=== PATIENT | female | born 1950 | race Caucasian/White ===

== ENCOUNTER 2017-05-25 10:53 | Outpatient (CLI) | payer BC, MEDICARE | END 2017-05-25 11:00 | LOC: SLEEP 10:53 | PROVIDERS: ATTEND Otolaryngology Otolaryngology/Facial Plastic Surgery | DX: G47.10 Hypersomnia, unspecified (principal); R06.83 Snoring ==

== ENCOUNTER → 2017-09-30 | Outpatient (CLI) | payer BC, MEDICARE ==
--- NOTE | 2017-09-30 10:13 | Diagnostic Imaging Report ---
PROCEDURE: MRI lumbar spine. TECHNIQUE: Multiplanar, multisequence MRI of the lumbar spine was performed without contrast. INDICATION: Lower back pain. Left leg pain. Recent lumbar surgery. COMPARISON: 06/19/2014. FINDINGS: For the purposes of this exam, last well-formed disc space is denoted the L5-S1 level. Static alignment of the lumbar spine is maintained. There is no significant ramón- or retrolisthesis. There is no evidence of jumped facets. Vertebral body heights are maintained. There is no evidence of acute fracture. Modic type II degenerative changes are noted involving the adjacent endplates at the L5-S1 level. There is also some edematous type signal involving the anterior inferior corner of the T12 vertebral body and anterior superior corners of the L1 and L2 vertebral bodies. Otherwise, marrow signal is unremarkable. There is also multilevel intervertebral disc height loss. There has been significant progression of degenerative disc disease at the L5-S1 level when compared to 2013. Visualized portions of distal cord are unremarkable. Conus terminates at approximately the L1 level. No abnormal intrathecal filling defects are seen. Pre-and paravertebral soft tissue structures are unremarkable. Note is made of heterogeneous signal within the subcutaneous soft tissues, midline at the L3 through L5 level. Multiple foci of signal void are also noted. Findings are consistent with recent surgical intervention. No distinct focal fluid collections are seen to suggest abscess formation. Axial images demonstrate the following: T12-L1: There is left paracentric small focal disc protrusion. This results in minimal asymmetric narrowing of the spinal canal. There is also mild bilateral ligamentum flavum laxity and facet arthropathy. There is however no significant neuroforaminal stenosis. L1-L2: There is broad-based posterior disc bulge, slightly eccentric to the left. As result, there is minimal narrowing of the spinal canal. Neural foramen are unremarkable. L2-L3: There is broad-based posterior disc bulge which results in minimal flattening of the anterior thecal sac. There is also minimal narrowing of the bilateral neural foramen. L3-L4: There is slight broad-based posterior disc bulge. There is also bilateral ligamentum flavum laxity and facet arthropathy. Note is also made of a 4-5 mm T2 bright rounded focus anterior to the right facet. This likely represents synovial cyst and may result in mass effect on the exiting right L4 nerve root. There is also mild narrowing of the bilateral neural foramen. L4-L5: There is no large disc bulge or focal protrusion. Postsurgical changes are noted. There is minimal narrowing of the spinal canal and bilateral neural foramen. L5-S1: There is broad-based posterior disc bulge and bilateral facet arthropathy. This results in mild narrowing of the bilateral neural foramen and minimal narrowing of spinal canal. IMPRESSION: 1. Postsurgical changes of the lumbar spine. Again, there is heterogeneous signal within the posterior soft tissues. There is no evidence of postsurgical loculated fluid collection. 2. Multilevel degenerative changes of the lumbar spine. Intervertebral degenerative changes are greatest at the L5-S1 level. Note is also made of synovial cyst on the right at the L3-L4 level potentially resulting in mass effect on the exiting right L4 nerve root. 3. No acute fracture or dislocation. Dictated by: Dictated on workstation # [id number]
== END ==
LOC: RAD 09:12
PROVIDERS: ATTEND Physician Assistant
DX: M47.817 Spondylosis without myelopathy or radiculopathy, lumbosacral region (principal); M71.38 Other bursal cyst, other site; M79.605 Pain in left leg; Z98.890 Other specified postprocedural states
CPT/HCPCS: 72148

== ENCOUNTER → 2020-10-04 | Outpatient (CLI) | payer OTHER, MEDICARE | LOC: GIR 12:32 | PROVIDERS: ATTEND Nurse Practitioner Family | DX: Z01.89 Encounter for other specified special examinations (principal) | CPT/HCPCS: 84145 ==

== ENCOUNTER → 2020-10-07 | Outpatient (CLI) | payer OTHER | LOC: GIR 13:03 → MERGE 13:03 | PROVIDERS: ATTEND Internal Medicine | DX: Z01.89 Encounter for other specified special examinations (principal) | CPT/HCPCS: 84145 ==

== ENCOUNTER 2020-10-13 10:17 | Inpatient (IN) | payer BC, MEDICARE ==
[2020-10-13] VITALS (17 sets, daily range): BP systolic 81–118; BP diastolic 32–99
[~2020-10-13] VITALS: Ht 170 cm; Wt 96.0 kg
[2020-10-13] MEDS ORDERED: DOCUSATE SODIUM 100 MG (COLACE) CAP PO PRN (11:00)
[2020-10-13] MEDS ORDERED: ACETAMINOPHEN 500 MG TAB (TYLENOL) PO PRN (11:00)
[2020-10-13] MEDS ORDERED: diphenhydrAMINE 25 MG TAB (BENADRYL) PO PRN (11:00)
[2020-10-13] MEDS ORDERED: HYDROcodone/APAP 5 MG/325 MG (LORTAB) TAB PO PRN (11:00)
[2020-10-13] MEDS ORDERED: MELATONIN 3 MG TABLET PO PRN (11:00)
[2020-10-13] MEDS ORDERED: ONDANSETRON 4 MG/2 ML (SDV) Z0FRAN IVP PRN (11:00)
[2020-10-13] MEDS ORDERED: CALCIUM CARBONATE 500 MG (TUMS) TAB.CHEW PO PRN (11:00)
[2020-10-13] MEDS ORDERED: ALPRAZolam 0.25 MG (XANAX) TAB PO PRN (11:00)
[2020-10-13] MEDS ORDERED: LOPERAMIDE 2 MG (IMODIUM) TABLET PO PRN (11:00)
[2020-10-13] MEDS ORDERED: CATHETER FLUSH 10 ML SYR IV PRN (12:45)
--- NOTE | 2020-10-13 13:51 | Diagnostic Imaging Report ---
INDICATION: Dyspnea. TECHNIQUE: Single view chest 12:58 PM. CORRELATION STUDY: None FINDINGS: Heart is enlarged. 5 lobe patchy opacities are present, right lung slightly greater than left, most compatible with multilobe pneumonia. Cervical spinal fusion hardware is present. IMPRESSION: 1. Extensive bilateral pulmonary opacities most compatible with multilobe pneumonia. This would include the potential for Covid 19 infection. Superimposed edema not excluded. Dictated by: Dictated on workstation # [id number]
[2020-10-13] MEDS ORDERED: DIGOXIN 0.25 MG/ML (LANOXIN) 2 ML AMP IV NR ×2 (14:30→20:30)
[2020-10-13] MEDS ORDERED: ENOXAPARIN 100 MG/1 ML (LOVENOX) SYR SC NR (14:30)
[2020-10-13] MEDS: AMIODARONE INJECTION 450 MG in D5W IV SOLUTION (EXCEL) 250 ML IV SCH (14:32)
[2020-10-13] MEDS: NS IV 1000 ML 1,000 ML IV SCH ×3 (14:32→23:40)
[2020-10-13 14:34] LABS: BASOPHILS % (AUTO) 0 % (0-10); EOSINOPHILS # (AUTO) 0.1 10^3/uL (0.0-0.3); EOSINOPHILS % (AUTO) 1 % (0-10); HEMATOCRIT 36 % (35-52); HEMOGLOBIN 12.2 g/dL (11.5-16.0); LYMPHOCYTES # (AUTO) 0.5 10^3/uL (1.0-4.0); LYMPHOCYTES % (AUTO) 4 % (12-44); MEAN CORPUSCULAR HEMOGLOBIN 30 pg (25-34); MEAN CORPUSCULAR HGB CONC 34 g/dL (32-36); MEAN CORPUSCULAR VOLUME 89 fL (80-99); MEAN PLATELET VOLUME 9.1 fL (9.0-12.2); MONOCYTES # (AUTO) 0.3 10^3/uL (0.0-1.0); MONOCYTES % (AUTO) 2 % (0-12); NEUTROPHILS # (AUTO) 12.4 10^3/uL (1.8-7.8); NEUTROPHILS % (AUTO) 92 % (42-75); PLATELET COUNT 142 10^3/uL (130-400); WHITE BLOOD COUNT 13.4 10^3/uL (4.3-11.0)
[2020-10-13 14:47] LABS: ALBUMIN 2.7 GM/DL (3.2-4.5); CHLORIDE 96 MMOL/L (98-107); POTASSIUM 4.4 MMOL/L (3.6-5.0); SODIUM 134 MMOL/L (135-145)
[2020-10-13 14:50] LABS: GLUCOSE 108 MG/DL (70-105); TOTAL PROTEIN 5.6 GM/DL (6.4-8.2)
[2020-10-13 14:51] LABS: BILIRUBIN,TOTAL 0.9 MG/DL (0.1-1.0); CARBON DIOXIDE 27 MMOL/L (21-32)
[2020-10-13 14:53] LABS: ALKALINE PHOSPHATASE 88 U/L (40-136); CREATININE SERUM 0.77 MG/DL (0.60-1.30); GFR ESTIMATED > 60
[2020-10-13 14:54] LABS: BUN/CREATININE RATIO 30
[2020-10-13 14:56] LABS: ALANINE AMINOTRANSFERASE 26 U/L (0-55)
--- NOTE | 2020-10-13 14:56 | Consultation-Cardiology ---
HPI-Cardiology Cardiology Consultation: Date of Consultation 10/13/20 Date of Admission Attending Physician Alla Martel DO Admitting Physician Rafi Bravo MD Consulting Physician Viet GRAJEDA MD HPI: Time Seen by a Provider: 14:00 Chief Complaint: tachycardia This is a 70 year old lady with AF RVR transferred to [facility] for further management. She also has history of COVID pneumonia with hypoxia and bacterial pneumonia requiring broad spectrum antibiotics. when i saw the patient she was in AF with RVR with heart rates in the 130s and BP systolic in the 90s. no cardizem. on amiodarone infusion. I recommended digoxin. Patient had severe respiratory distress and was on Bipap. she was on Eliquis from [facility]. Review of Systems-Cardiology Review of Systems Constitutional: As described under HPI; No As described under HPI, No no symptoms reported, No chills, No fever, No lightheadedness Eyes: No As described under HPI, No no symptoms reported, No blindness, No blurred vision, No contact lenses, No drainage, No decreased acuity, No foreign body sensation, No pain, No vision change Ears/Nose/Throat: No As described under HPI, No no symptoms reported, No chronic hearing loss, No ear discharge, No ear pain, No nasal drainage, No ulcerations Respiratory: No no symptoms reported; As described under HPI; No As described under HPI, No cough; orthopnea; No shortness of breath, No SOB with excertion Cardiovascular: No no symptoms reported; As described under HPI; No As described under HPI, No chest pain, No edema, No irregular heart rate, No lightheadedness; palpitations Gastrointestinal: No no symptoms reported, No As described under HPI, No abdomen distended, No abdominal pain, No blood streaked bowels, No constipation, No diarrhea, No nausea, No vomiting, No stool coloration changes Genitourinary: No As described under HPI, No burning, No dysuria, No discharge, No frequency, No flank pain, No hematuria, No urgency : Yes : No Skin: No rash, No skin related problems, No ulcerations Psychiatric/Neurological: No anxiety, No depression, No seizure, No focal weak ness, No syncope Hematologic: No bleeding abnormalities XAE-Ggaset-Yqsibg Hx Past Medical History PMH As described under Assessment. Allergies and Home Medications Allergies Coded Allergies: morphine (Unverified Allergy, Unknown, 09/23/06) Uncoded Allergies: TAPE (Adverse Reaction, Unknown, BLISTERS, 09/23/06) Patient Home Medication List Home Medication List Reviewed: Yes Physical Exam-Cardiology Physical Exam Vital Signs/I&O Capillary Refill : Constitutional: appears stated age, AAO x 3, apparent distress, well-developed, well-nourished HEENT: PERRL; No discharge; hearing is well preserved, oral hygience is good; No ulceration, No xanthelasmas are seen Neck: No carotid bruit; carotid pulses are 2 + bilaterally Respiratory: accessory muscle use, respiratory distress, other (decreased breath sounds bilaterally) Cardiovascular: irregularly irregular, tachycardia, S1 and S2 Gastrointestinal: soft, audible bowel sounds; No spleenomegaly Rectal: deferred Extremities: No clubbing, No cyanosis; no lower extremity edema bilateral; No significant edema Neurologic/Psychiatric: no motor/sensory deficits, alert, normal mood/affect, oriented x 3, power is 5/5 both on sides Skin: No rash, No ulcerations Data Review Labs Laboratory Tests 10/14/20 04:00: White Blood Count 14.0H, Red Blood Count 3.80, Hemoglobin 11.5, Hematocrit 34L, Mean Corpuscular Volume 90, Mean Corpuscular Hemoglobin 30, Mean Corpuscular Hemoglobin Concent 34, Red Cell Distribution Width 12.5, Platelet Count 123L, Mean Platelet Volume 9.1, Immature Granulocyte % (Auto) 1, Neutrophils (%) (Auto) 94H, Lymphocytes (%) (Auto) 3L, Monocytes (%) (Auto) 2, Eosinophils (%) (Auto) 1, Basophils (%) (Auto) 0, Neutrophils # (Auto) 13.1H, Lymphocytes # (Auto) 0.4L, Monocytes # (Auto) 0.3, Eosinophils # (Auto) 0.1, Basophils # (Auto) 0.0, Immature Granulocyte # (Auto) 0.2H, Blood Gas Puncture Site RIGHT RADIAL, Blood Gas Patient Temperature 37.0, Arterial Blood pH 7.44H, Arterial Blood Partial Pressure CO2 43, Arterial Blood Partial Pressure O2 71L, Arterial Blood HCO3 28H, Arterial Blood Total CO2 29.7, Arterial Blood Oxygen Saturation 92L, Arterial Blood Base Excess 4.3H, Axel Test YES-POS, Blood Gas Ventilator Setting NO, Blood Gas Inspired Oxygen 100%, Sodium Level 133L, Potassium Level 4.3, Chloride Level 98, Carbon Dioxide Level 26, Anion Gap 9, Blood Urea Nitrogen 15, Creatinine 0.70, Estimat Glomerular Filtration Rate > 60, BUN/Creatinine Ratio 21, Glucose Level 86, Calcium Level 7.9L, Corrected Calcium 9.2, Phosphorus Level 3.2, Magnesium Level 1.8, Total Bilirubin 1.1H, Aspartate Amino Transf (AST/SGOT) 42H, Alanine Aminotransferase (ALT/SGPT) 25, Alkaline Phosphatase 94, Total Protein 5.3L, Albumin 2.4L, Triglycerides Level 73, Procalcitonin 0.68H ECG Impression ECG Initial ECG Impression: Atrial Fibrillation w/RVR A/P-Cardiology Assessment/Admission Diagnosis acute respiratory failure, covid pneumonia, bacterial pneumonia, AF with RVR hypotension Plan acute respiratory failure, on bipap covid pneumonia, on appropriate treatment bacterial pneumonia, broad spectrum antibiotics AF with RVR, amiodarone infusion, will start digoxin. patient did not tolerate cardizem in [facility]. hypotension, multifactorial, sepsis and af with rvr. echo gurarded prognosis Thank you for your consultation. Please call me if you have any questions. Thu Grajeda MD, FACP, FACC, FSCAI, FHRS, CCDS Interventional Cardiology Cardiac Electrophysiology Vascular Medicine and Endovascular Interventions Viet GRAJEDA MD Oct 13, 2020 14:56
[2020-10-13 16:09] LABS: BAND NEUTROPHILS 2 %; LYMPHOCYTES % (MANUAL) 4 %; MONOCYTES % (MANUAL) 3 %; NEUTROPHILS % (MANUAL) 91 %
--- NOTE | 2020-10-13 19:19 | NUR ---
Dr. rGajeda wishes to push the Eliquis dose for this evening to 2230 due to lovenox dose at 1430 today.
--- NOTE | 2020-10-13 20:00 | NUR ---
2000: THIS RN TO ROOM TO ASSESS PT. PATIENT'S RESPIRATORY RATE IS 38, O2 SATURATION: 90% AND HEART RATE 120-140'S (A-FIB). PT IS CURRENTLY ON BIPAP (18/8 AND 100% FIO2). THIS RN TALKED WITH PATIENT ABOUT HER VITAL SIGNS, OXYGENATION REQUIREMENTS, THE NEED TO OBTAIN AN ABG AND THE POSSIBILITY OF INTUBATION. PT IS HESITANT ABOUT GETTING MORE ABG'S SHE REPORTS BEING POKED MANY TIMES AT THE PREVIOUS FACILITY. PT WOULD LIKE TO "WAIT A LITTLE BIT ON THE ABG." PT REQUESTING MULTIPLE DRINKS OF WATER; O2 SATURATION NOTED TO DROP TO LOW 80'S WITH BI-PAP BEING REMOVED FOR HYDRATION. PT IS A&O X4 AND IS WILLING TO BE INTUBATED IF NEEDED. THIS RN EXPLAINED THE PROCEDURE TO PT AND PROMISED TO NOTIFY HER FAMILY AND IF THAT NEEDED TO HAPPEN. BED IS IN LOWEST POSITION AND CALL LIGHT IS WITHIN REACH. R/T NOTIFIED OF PT'S CONDITION AND WILL BE IN TO ASSESS PT. PT PLACED IN AIRBORNE ISOLATION AT THIS TIME. 2144: PT WILLING TO HAVE ABG DRAWN AT THIS TIME. ABG OBTAINED X1 STICK TO RIGHT RADIAL ARTERY. 2239: PT HR NOW 100-115 (A-FIB), RESPIRATORY RATE 28, O2 SATURATION 92% ON 100% FIO2. WILL CONTINUE TO MONITOR.
--- NOTE | 2020-10-13 20:55 | Progress Note ---
Progress Note This is a 70yoWF patient I transferred from [facility] [place] due to AF w/RVR in chronic AF patient managed by Dr Burk maintained on ASA 81mg daily prior to admit who was admitted on 10/04/20 to my service at [facility] due to COVID-19 PNA with hypoxia and bacterial PNA who completed Meropenem and Zmax. Patient had been doing very well although lengthy and slow recovery alternating with Vapotherm and biPAP but ultimately required Cardiology care at [facility] so she was transferred due to hypotension and unable to tolerate Cardizem drip so Amiodarone was initiated and moved to [facility]. PCT and LA all normal and CXR revealed extensive COVID-19 infiltrates. To note I placed her on Eliquis 5mg PO BID on admit due to increased thrombosis risk with COVID-19 in addition to AF CVA PPx and DVT PPx and she had not missed a dose since admit. Complaining of left leg pain which is new today and d-dimer elevated so if there is indeed a new thrombosis she has failed Eliquis 5mg PO BID maintained since 10/04/20 w/o missed doses. NAY LOPEZ DO Oct 13, 2020 20:55
[2020-10-13] MEDS ORDERED: MONTELUKAST 10 MG (SINGULAIR) TAB PO SCH (21:00)
[2020-10-13 21:13] LABS: ABG BASE EXCESS 4.8 MMOL/L (-2.5-2.5); ABG OXYGEN SATURATION 94 % (94-100); ABG PCO2 40 MMHG (35-45); ABG PH 7.47 (7.37-7.43); ABG PO2 73 MMHG (79-93); ABG TCO2 29.7 MMOL/L (21.0-31.0)
[2020-10-13 21:16] LABS: ALLENS TEST YES-POS; INSPIRED O2 100%; PATIENT TEMP 37.1; VENTILATOR NO
[2020-10-13] MEDS: SENNA W/DOCUSATE (SENOKOT S) TABLET PO SCH (23:32)
[2020-10-13] MEDS: APIXABAN 5 MG (ELIQUIS) TABLET PO SCH (23:33)
[2020-10-14] VITALS (12 sets, daily range): BP systolic 94–127; BP diastolic 54–87
[2020-10-14] MEDS: RT-ALBUTEROL INHALER HFA (VENTOLIN HFA) 18 GM IH SCH ×2 (01:05→07:15)
[2020-10-14] MEDS ORDERED: DIGOXIN 0.25 MG/ML (LANOXIN) 2 ML AMP IV NR (02:30)
[2020-10-14 04:47] LABS: BASOPHILS % (AUTO) 0 % (0-10); EOSINOPHILS # (AUTO) 0.1 10^3/uL (0.0-0.3); EOSINOPHILS % (AUTO) 1 % (0-10); HEMATOCRIT 34 % (35-52); HEMOGLOBIN 11.5 g/dL (11.5-16.0); LYMPHOCYTES # (AUTO) 0.4 10^3/uL (1.0-4.0); LYMPHOCYTES % (AUTO) 3 % (12-44); MEAN CORPUSCULAR HEMOGLOBIN 30 pg (25-34); MEAN CORPUSCULAR HGB CONC 34 g/dL (32-36); MEAN CORPUSCULAR VOLUME 90 fL (80-99); MEAN PLATELET VOLUME 9.1 fL (9.0-12.2); MONOCYTES # (AUTO) 0.3 10^3/uL (0.0-1.0); MONOCYTES % (AUTO) 2 % (0-12); NEUTROPHILS # (AUTO) 13.1 10^3/uL (1.8-7.8); NEUTROPHILS % (AUTO) 94 % (42-75); PLATELET COUNT 123 10^3/uL (130-400)
[2020-10-14 04:49] LABS: ABG BASE EXCESS 4.3 MMOL/L (-2.5-2.5); ABG OXYGEN SATURATION 92 % (94-100); ABG PCO2 43 MMHG (35-45); ABG PH 7.44 (7.37-7.43); ABG PO2 71 MMHG (79-93); ABG TCO2 29.7 MMOL/L (21.0-31.0)
[2020-10-14 04:51] LABS: ALLENS TEST YES-POS; INSPIRED O2 100%; VENTILATOR NO
[2020-10-14 04:58] LABS: ALBUMIN 2.4 GM/DL (3.2-4.5); CHLORIDE 98 MMOL/L (98-107); POTASSIUM 4.3 MMOL/L (3.6-5.0); SODIUM 133 MMOL/L (135-145)
[2020-10-14 05:00] LABS: CALCIUM 7.9 MG/DL (8.5-10.1)
[2020-10-14 05:01] LABS: GLUCOSE 86 MG/DL (70-105); TOTAL PROTEIN 5.3 GM/DL (6.4-8.2)
[2020-10-14 05:02] LABS: BILIRUBIN,TOTAL 1.1 MG/DL (0.1-1.0); CARBON DIOXIDE 26 MMOL/L (21-32)
[2020-10-14] MEDS: AMIODARONE INJECTION 450 MG in D5W IV SOLUTION (EXCEL) 250 ML IV SCH (05:02)
[2020-10-14 05:04] LABS: ALKALINE PHOSPHATASE 94 U/L (40-136); GFR ESTIMATED > 60; PHOSPHORUS 3.2 MG/DL (2.3-4.7)
[2020-10-14 05:05] LABS: BUN/CREATININE RATIO 21
[2020-10-14 05:07] LABS: ALANINE AMINOTRANSFERASE 25 U/L (0-55)
[2020-10-14 05:08] LABS: MAGNESIUM 1.8 MG/DL (1.6-2.4)
[2020-10-14] MEDS ORDERED: inSUlin ASPART (NovoLOG) 1 UNIT/0.01 ML (CHARGE PER UNIT) SC SCH (06:00)
[2020-10-14] MEDS ORDERED: POTASSIUM CL 10MEQ/50ML IVPB 50 ML IV SCH (06:00)
[2020-10-14] MEDS ORDERED: MAGNESIUM 1 GM/100 ML IVPB 100 ML IV SCH (06:00)
[2020-10-14] MEDS ORDERED: KCL 20 MEQ TAB (K-DUR) PO SCH (06:00)
[2020-10-14] MEDS ORDERED: LEVOTHYROXINE 100 MCG (LEVOTHROID) TAB PO SCH (06:30)
[2020-10-14] MEDS: SENNA W/DOCUSATE (SENOKOT S) TABLET PO SCH (08:16)
[2020-10-14] MEDS: APIXABAN 5 MG (ELIQUIS) TABLET PO SCH (08:16)
--- NOTE | 2020-10-14 08:49 | Diagnostic Imaging Report ---
EXAMINATION: Portable erect AP chest at 6:34 AM INDICATION: Dyspnea The cardiomegaly and the alveolar/interstitial pulmonary infiltrates involving both lungs seen previously on 10/13/2020 are again evident. The density in both upper lobes does seem somewhat greater than on the prior study. There is still no sign of a pleural effusion. The mediastinum is not widened. The osseous structures are intact. IMPRESSION: The appearance of the chest has worsened since the prior exam as there does seem to be greater involvement of both upper lobes by pneumonia/atelectasis. A followup study would be recommended for continued evaluation. Dictated by: Dictated on workstation # [id number]
[2020-10-14] MEDS ORDERED: DIGOXIN 0.25 MG/ML (LANOXIN) 2 ML AMP IV SCH (09:00)
[2020-10-14] MEDS ORDERED: PANTOPRAZOLE 40 MG (PROTONIX) TAB PO SCH (09:00)
[2020-10-14] MEDS ORDERED: LORATADINE (CLARITIN) 10 MG TAB PO SCH (09:00)
[2020-10-14] MEDS ORDERED: PROPOFOL DRIP (ICU) 0 ML IV ONE (09:02)
--- NOTE | 2020-10-14 09:10 | NUR ---
Pt noted to be more fatigued, sats in the mid to low 80's. Pt respiratory rate mid to upper 30's, using multiple accessory muscles to breathe. Pt asked if she was wanting intubation again and pt stated yes. Dr. Martel notified who stated to consult EICU. called and he stated "do everything you can to save her". EICU called and intubation process started.
[2020-10-14] MEDS ORDERED: PROPOFOL DRIP (ICU) 100 ML IV SCH (09:30)
[2020-10-14] MEDS ORDERED: fentaNYL DRIP PRE-MIX 250 ML IV ONE (09:31)
[2020-10-14] MEDS ORDERED: fentaNYL INJECTION 100 MCG/2 ML AMP IVP PRN (09:45)
[2020-10-14] MEDS ORDERED: NOREPINEPHRINE 4 MG/250 ML 250 ML IV ONE (09:54)
[2020-10-14] MEDS ORDERED: NOREPINEPHRINE 4 MG/250 ML 250 ML IV SCH (10:00)
--- NOTE | 2020-10-14 11:00 | NUR ---
Spiked full bottle of Propofol and full bag of fentenyl that were not started on pt. Both of these meds were wasted with Karen Mcdonough RN
[2020-10-14] MEDS ORDERED: EPINEPHrine 0.1 MG/ML 10 ML (HOSPIRA) SYR IJ ONE (11:23)
[2020-10-14] MEDS ORDERED: SUCCINYLCHOLINE INJ 100 MG/5 ML SYR/VIAL INJ ONE (11:23)
[2020-10-14] MEDS ORDERED: CATHETER FLUSH 10 ML SYR IV ONE (11:23)
[2020-10-14] MEDS ORDERED: SODIUM BICARB 8.4% 50 MEQ/50 ML (ABBOTT) SYR INJ ONE (11:23)
--- NOTE | 2020-10-14 11:26 | NUR ---
TIMELINE NOTE: 0929-10mg of propofol given for intubation per EICU 0931-pt biting scope, 60mg succs given per EICU 0938- pt intubated by RT with size 8.0 ETT 25 at the teeth. Color change on CO2 detector noted and positive Breath sounds heard. 0945- Pt sats decreased to the 70's at this time, pt bagged back to 90's. Place back on vent Vt 450, Rate 26 peep of 16 fio2 100% per EICU orders. 0948- Pt sats decreased to 60's at this time, pt bagged again with sats not increasing 0950- Stat xray done, Pneumothorax noted on pt's left side, confirmed by EICU 0952-Dr. Adan called and Dr. Serrano called to place chest tube. 0957-Dr. Adan in room preparing to place thoravent chest tube 1000-Rt still bagging, sats in the 60's and HR dropped from 120's to the 40's. Pulse still felt 1003-Change in Rhythm on the monitor noted by this RN, pt is noted to have no pulse at this time, Sats in the 60's, CPR started 1005-Epi given 1006-pulse check, no pulse, cpr resumed 1008-Epi given 1009-positive pulse at this time at 87, sats 76% BP 91/66 1011- needle decompression done at this time by Dr. Yanez 1012-Dr. Serrano in room 1014-no pulse, cpr started 1016-no pulse, resume cpr Epi given 1019-Epi given 1020-Thoravent placed by Dr. Moses and Dr. Serrano 1022-Bicarb given, pt still remains pulseless 1023-Epi given 1024-no pulse, resumed CPR 1025-Chest tube in at this time by Dr. Serrano 1026-Epi given 1028-No pulse, resume CPR 1029-Epi given Dr. Serrano attempted to inflate left lung better at this time 1032-epi given, Dr. Moses talking to EICChris Mon 1035-epi given 1036-Code called by Dr. Moses and EICChris Mon
--- NOTE | 2020-10-14 11:29 | History & Physical-Hospitalist ---
History of Present Illness HPI/Chief Complaint CC: AF w/RVR complications from COVID-19 PNA HPI: This is a 70yoWF I transferred from [facility] to [facility] for Cardiology care and higher level of ICU care due to difficult to control AF w/RVR requiring Amiodarone drip due to intolerance to Cardizem from hypotension who had been doing well on biPAP as she had been on at [facility] since I admitted her on 10/04/20. CTA revealed no PE on admit and patient was placed on Eliquis for thrombosis prevention from COVID-19 and also AF CVA PPx which was started on admit. Patient had just completed Meropenem and Zmax at [facility] and prior to transfer her LA and PCT were both normal. IVF help optimize BP. I assessed the patient at 1900 last night and she was alert and doing well on biPAP. This morning she began having respiratory distress and eicu assessed her to need intubation. After intubation she began having difficulty oxygenating and was found to have severe PTX. ER doctor Jonathan arrived at bedside with Dr Foster and chest tube placed but patient went into cardiac arrest and compressions were performed along with ACLS protocol meds. Patient ultimately suffered another cardiac arrest and family arrived and patient was declared . I spoke to family in-depth after and events reviewed and all questions answered to the best of my ability. COVID-19 caused such devastating lung injury it was the primary factor in her . Source: RN/MD Exam Limitations: clinical condition Date Seen 10/14/20 Time Seen by a Provider: 11:00 Attending Physician Alla Martel Wen-Chou MD Referring Physician Date of Admission Oct 13, 2020 at 12:21 Home Medications & Allergies Home Medications Reviewed patient Home Medication Reconciliation performed by pharmacy medication reconciliations manometer technician and/or nursing. Patients Allergies have been reviewed. Allergies Allergies Coded Allergies morphine (Unverified Allergy, Unknown, 09/23/06) Uncoded Allergies TAPE ( Adverse Reaction, Unknown, BLISTERS, 09/23/06) Past Ciczzol-Msgdxr-Shbzdd Hx Past Med/Social Hx: Reviewed Nursing Past Med/Soc Hx, Reviewed and Corrections made Patient Social History Marrital Status: Employed/Student: retired Alcohol Use: Denies Use Recreational Drug Use: No Smoking Status: Former Smoker Former Smoker, Quit: Oct 13, 1982 Type Used: Cigarettes Physical Abuse Screen: No Sexual Abuse: No Recent Foreign Travel: No Contact w/other who traveled: No Recent Hopitalizations: Yes Recent Infectious Disease Expo: No Immunizations Up To Date Date of Pneumonia Vaccine: Oct 17, 2015 Date of Influenza Vaccine: Jul 17, 2020 Seasonal Allergies Seasonal Allergies: No Past Medical History Respiratory: Sleep Apnea COVID-19 10/04/20 Currently Using CPAP: Yes Currently Using BIPAP: No Cardiac: Atrial Fibrillation, High Cholesterol, Hypertension Reproductive: Yes Genitourinary: Renal Failure Musculoskeletal: Gout Endocrine: Hypothyroidsim, Diabetes, Non-Insulin dep Are Your Blood Sugars Over 250: No History of Blood Disorders: No Review of Systems Constitutional: see HPI Physical Exam Physical Exam Vital Signs Vital Signs - First Documented 10/13/20 10/13/20 10/13/20 10/13/20 12:30 14:00 16:12 16:35 Temp 35.6 Pulse 160 Resp 33 B/P (MAP) 81/32 (48) Pulse Ox 87 O2 Delivery NIV Bilevel O2 Flow Rate 100.00 FiO2 100 Capillary Refill : Height, Weight, BMI Height: '" Weight: lbs. oz. kg; 33.21 BMI Method: General Appearance: No Apparent Distress, Chronically ill Respiratory: Decreased Breath Sounds Cardiovascular: Irregularly Irregular, Tachycardia Results Results/Procedures Labs Laboratory Tests 10/13/20 14:27 10/14/20 04:00 Patient resulted labs reviewed. Assessment/Plan Admission Diagnosis Assessment: AF w/RVR COVID-19 admitted 10/04/20 [facility] s/p Remdesivir, CVP, Decadron and Eliquis (started 10/04/20 5mg PO BID) Cardiac arrest PTX catastrophic requiring chest tube Hypothyroidism DM SHANEKA Plan: s/p ACLS protocol Admission Status: Inpatient Order (span 2 midnights) Reason for Inpatient Admission: AF w/RVR Diagnosis/Problems Diagnosis/Problems (1) Pneumonia due to COVID-19 virus (2) Pneumothorax (3) SHANEKA (obstructive sleep apnea) (4) Hypothyroidism (5) Diabetes (6) Atrial fibrillation with RVR Clinical Quality Measures DVT/VTE Risk/Contraindication: Risk Factor Score Per Nursin RFS Level Per Nursing on Admit: 3=High ALLA MARTEL DO Oct 14, 2020 11:29
--- NOTE | 2020-10-14 11:32 | Discharge Summary ---
Diagnosis/Chief Complaint Date of Admission Oct 13, 2020 at 12:21 Date of Discharge Discharge Diagnosis Cardiopulmonary arrest COVID-19 PNA PTX AF w./RVR Discharge Summary Discharge Physical Examination Allergies: Coded Allergies: morphine (Unverified Allergy, Unknown, 09/23/06) Uncoded Allergies: TAPE (Adverse Reaction, Unknown, BLISTERS, 09/23/06) Vitals & I&Os Vital Signs Date Time Temp Pulse Resp B/P (MAP) Pulse Ox O2 Delivery O2 Flow Rate FiO2 10/14/20 09:00 112 28 118/74 (89) 86 NIV Bilevel 100.00 10/13/20 22:18 37.1 100 Hospital Course Was the Problem List Reviewed?: Yes See HPI/Assessment of H&P Labs (last 24 hrs) Laboratory Tests 10/13/20 14:27: White Blood Count 13.4H, Red Blood Count 4.06, Hemoglobin 12.2, Hematocrit 36, Mean Corpuscular Volume 89, Mean Corpuscular Hemoglobin 30, Mean Corpuscular Hemoglobin Concent 34, Red Cell Distribution Width 12.5, Platelet Count 142, Mean Platelet Volume 9.1, Immature Granulocyte % (Auto) 1, Neutrophils (%) (Auto) 92H, Lymphocytes (%) (Auto) 4L, Monocytes (%) (Auto) 2, Eosinophils (%) (Auto) 1, Basophils (%) (Auto) 0, Neutrophils # (Auto) 12.4H, Lymphocytes # (Auto) 0.5L, Monocytes # (Auto) 0.3, Eosinophils # (Auto) 0.1, Basophils # (Auto) 0.0, Immature Granulocyte # (Auto) 0.2H, Neutrophils % (Manual) 91, Lymphocytes % (Manual) 4, Monocytes % (Manual) 3, Band Neutrophils 2, D-Dimer > 20.00*H, Sodium Level 134L, Potassium Level 4.4, Chloride Level 96L, Carbon Dioxide Level 27, Anion Gap 11, Blood Urea Nitrogen 23H, Creatinine 0.77, Estimat Glomerular Filtration Rate > 60, BUN/Creatinine Ratio 30, Glucose Level 108H, Lactic Acid Level 1.70, Calcium Level 8.0L, Corrected Calcium 9.0, Total Bilirubin 0.9, Aspartate Amino Transf (AST/SGOT) 34, Alanine Aminotransferase (ALT/SGPT) 26, Alkaline Phosphatase 88, Troponin I 0.122H, B-Type Natriuretic Peptide 362.0H, Total Protein 5.6L, Albumin 2.7L 10/13/20 21:00: Blood Gas Puncture Site RIGHT RADIAL, Blood Gas Patient Temperature 37.1, Arterial Blood pH 7.47H, Arterial Blood Partial Pressure CO2 40, Arterial Blood Partial Pressure O2 73L, Arterial Blood HCO3 29H, Arterial Blood Total CO2 29.7, Arterial Blood Oxygen Saturation 94, Arterial Blood Base Excess 4.8H, Axel Test YES-POS, Blood Gas Ventilator Setting NO, Blood Gas Inspired Oxygen 100% 10/13/20 21:47: Glucometer 105 10/14/20 04:00: White Blood Count 14.0H, Red Blood Count 3.80, Hemoglobin 11.5, Hematocrit 34L, Mean Corpuscular Volume 90, Mean Corpuscular Hemoglobin 30, Mean Corpuscular He moglobin Concent 34, Red Cell Distribution Width 12.5, Platelet Count 123L, Mean Platelet Volume 9.1, Immature Granulocyte % (Auto) 1, Neutrophils (%) (Auto) 94H , Lymphocytes (%) (Auto) 3L, Monocytes (%) (Auto) 2, Eosinophils (%) (Auto) 1, Basophils (%) (Auto) 0, Neutrophils # (Auto) 13.1H, Lymphocytes # (Auto) 0.4L, Monocytes # (Auto) 0.3, Eosinophils # (Auto) 0.1, Basophils # (Auto) 0.0, Imm ature Granulocyte # (Auto) 0.2H, Sodium Level 133L, Potassium Level 4.3, Chloride Level 98, Carbon Dioxide Level 26, Anion Gap 9, Blood Urea Nitrogen 15, Creatinine 0.70, Estimat Glomerular Filtration Rate > 60, BUN/Creatinine Ratio 21, Glucose Level 86, Calcium Level 7.9L, Corrected Calcium 9.2, Total Bilirubin 1.1H, Aspartate Amino Transf (AST/SGOT) 42H, Alanine Aminotransferase (ALT/SGPT) 25, Alkaline Phosphatase 94, Total Protein 5.3L, Albumin 2.4L, Blood Gas Puncture Site RIGHT RADIAL, Blood Gas Patient Temperature 37.0, Arterial Blood pH 7.44H, Arterial Blood Partial Pressure CO2 43, Arterial Blood Partial Pressure O2 71L, Arterial Blood HCO3 28H, Arterial Blood Total CO2 29.7, Arterial Blood Oxygen Saturation 92L, Arterial Blood Base Excess 4.3H, Axel Test YES-POS, Blood Gas Ventilator Setting NO, Blood Gas Inspired Oxygen 100%, Phosphorus Level 3.2, Magnesium Level 1.8, Triglycerides Level 73, Procalcitonin 0.68H Pending Labs Laboratory Tests 10/13/20 14:27: White Blood Count 13.4, Red Blood Count 4.06, Hemoglobin 12.2, Hematocrit 36, Mean Corpuscular Volume 89, Mean Corpuscular Hemoglobin 30, Mean Corpuscular Hemoglobin Concent 34, Red Cell Distribution Width 12.5, Platelet Count 142, Mean Platelet Volume 9.1, Immature Granulocyte % (Auto) 1, Neutrophils (%) (Auto) 92, Lymphocytes (%) (Auto) 4, Monocytes (%) (Auto) 2, Eosinophils (%) (Auto) 1, Basophils (%) (Auto) 0, Neutrophils # (Auto) 12.4, Lymphocytes # (Auto) 0.5, Monocytes # (Auto) 0.3, Eosinophils # (Auto) 0.1, Basophils # (Auto) 0.0, Immature Granulocyte # (Auto) 0.2, Neutrophils % (Manual) 91, Lymphocytes % (Manual) 4, Monocytes % (Manual) 3, Band Neutrophils 2, D-Dimer > 20.00, Sodium Level 134, Potassium Level 4.4, Chloride Level 96, Carbon Dioxide Level 27, Anion Gap 11, Blood Urea Nitrogen 23, Creatinine 0.77, Estimat Glomerular Filtration Rate > 60, BUN/Creatinine Ratio 30, Glucose Level 108, Lactic Acid Level 1.70, Calcium Level 8.0, Corrected Calcium 9.0, Total Bilirubin 0.9, Aspartate Amino Transf (AST/SGOT) 34, Alanine Aminotransferase (ALT/SGPT) 26, Alkaline Phosphatase 88, Troponin I 0.122, B-Type Natriuretic Peptide 362.0, Total Protein 5.6, Albumin 2.7 10/13/20 21:00: Blood Gas Puncture Site RIGHT RADIAL, Blood Gas Patient Temperature 37.1, Arterial Blood pH 7.47, Arterial Blood Partial Pressure CO2 40, Arterial Blood Partial Pressure O2 73, Arterial Blood HCO3 29, Arterial Blood Total CO2 29.7, Arterial Blood Oxygen Saturation 94, Arterial Blood Base Excess 4.8, Axel Test YES-POS, Blood Gas Ventilator Setting NO, Blood Gas Inspired Oxygen 100% 10/13/20 21:47: Glucometer 105 1/10/21 04:00: White Blood Count 14.0, Red Blood Count 3.80, Hemoglobin 11.5, Hematocrit 34, Mean Corpuscular Volume 90, Mean Corpuscular Hemoglobin 30, Mean Corpuscular Hemoglobin Concent 34, Red Cell Distribution Width 12.5, Platelet Count 123, Mean Platelet Volume 9.1, Immature Granulocyte % (Auto) 1, Neutrophils (%) (Auto) 94, Lymphocytes (%) (Auto) 3, Monocytes (%) (Auto) 2, Eosinophils (%) (Auto) 1, Basophils (%) (Auto) 0, Neutrophils # (Auto) 13.1, Lymphocytes # (Auto) 0.4, Monocytes # (Auto) 0.3, Eosinophils # (Auto) 0.1, Basophils # (Auto) 0.0, Immature Granulocyte # (Auto) 0.2, Sodium Level 133, Potassium Level 4.3, Chloride Level 98, Carbon Dioxide Level 26, Anion Gap 9, Blood Urea Nitrogen 15, Creatinine 0.70, Estimat Glomerular Filtration Rate > 60, BUN/Creatinine Ratio 21, Glucose Level 86, Calcium Level 7.9, Corrected Calcium 9.2, Total Bilirubin 1.1, Aspartate Amino Transf (AST/SGOT) 42, Alanine Aminotransferase (ALT/SGPT) 25, Alkaline Phosphatase 94, Total Protein 5.3, Albumin 2.4, Blood Gas Puncture Site RIGHT RADIAL, Blood Gas Patient Temperature 37.0, Arterial Blood pH 7.44, Arterial Blood Partial Pressure CO2 43, Arterial Blood Partial Pressure O2 71, Arterial Blood HCO3 28, Arterial Blood Total CO2 29.7, Arterial Blood Oxygen Saturation 92, Arterial Blood Base Excess 4.3, Axel Test YES-POS, Blood Gas Ventilator Setting NO, Blood Gas Inspired Oxygen 100%, Phosphorus Level 3.2, Magnesium Level 1.8, Triglycerides Level 73, Procalcitonin 0.68 Discharge Home Medications: Active Scripts Active Instructions to patient/family Please see electronic discharge instructions given to patient. Clinical Quality Measures DVT/VTE Risk/Contraindication: Risk Factor Score Per Nursin RFS Level Per Nursing on Admit: 3=High NAY LOPEZ DO Oct 14, 2020 11:32
--- NOTE | 2020-10-14 11:58 | Diagnostic Imaging Report ---
EXAM: Portable semi-erect AP chest at 9:55 AM INDICATION: Respiratory distress postcode In the interval since the exam performed earlier today at 6:34 AM a large 70-80 percent pneumothorax has developed on the left. There is shift of the midline to the right and mild inversion of the left hemidiaphragm, most likely there is an element of tension present. The diffuse alveolar/interstitial pulmonary infiltrates involving both lungs seen previously are again evident, although much of the left lung is collapsed about the left hilum.. The heart is stable in size. The mediastinum is not widened. In the interval since the prior exam, the patient has been intubated. The ET tube tip overlies the midportion of the tracheal air shadow and seems to be in good position. IMPRESSION: 1. The appearance of the chest has worsened since the prior exam as a large tension pneumothorax has developed on the left. 2. These results were called to the patient's nursing station but reportedly the patient soon after the chest x-ray was completed. Dictated by: Dictated on workstation # [id number]
--- NOTE | 2020-10-14 19:00 | Inpatient Code Blue ---
General Stated Complaint: AFIB W RVR Source: other (ICU Staff) History of Present Illness Date Seen by Provider: Oct 14, 2020 Time Seen by Provider: 10:52 Initial Comments This provider was called up from the ER by ICU to respond to a tension pneumotho rax after intubation. Patient was intubated at 09:38 by respiratory therapist. Patient experienced persistent hypoxia after intubation. Large pneuthorax was identified by x-ray. Allergies and Home Medications Allergies Coded Allergies: morphine (Unverified Allergy, Unknown, 09/23/06) Uncoded Allergies: TAPE (Adverse Reaction, Unknown, BLISTERS, 09/23/06) Patient Home Medication List Home Medication List Reviewed: Yes Physical Exam Vital Signs Vital Signs - First Documented 10/13/20 10/13/20 10/13/20 10/13/20 12:30 14:00 16:12 16:35 Temp 35.6 Pulse 160 Resp 33 B/P (MAP) 81/32 (48) Pulse Ox 87 O2 Delivery NIV Bilevel O2 Flow Rate 100.00 FiO2 100 Capillary Refill : Height, Weight, BMI Height: '" Weight: lbs. oz. kg; 33.21 BMI Method: General Appearance: other (sedated and intubated) Respiratory: other (asymmetric chest with ventilation) Neurologic/Psychiatric: other (agonal respiratory efforts, otherwise unresponsive) Critical Care Note Critical Care Date of : Oct 14, 2020 Time of : 10:36 Progress Left tension pneumothorax was confirmed on portable x-ray when I arrived to ICU. Patient was found to be pulseless with rhythm changes on the monitor while preparing for needle decompression. CPR was initiated by ICU staff using ACLS guidelines. Needle decompression was attempted with large bore IV catheter in the second or third intercostal space at the midclavicular line. ThoraVent was then attempted and failed on first attempt due to kinking of the catheter over the trocar. In the meantime, the IV catheter initially placed for decompression was dislodged by CPR. A second needle was placed for decompression with isbell of air resulting. A second ThoraVent was then successfully placed through incision. Dr. Serrano then arrived to provide assistance. A chest tube was then placed by Dr. Serrano at 10:25. CPR continued with multiple doses of epinephrine and bicarb given during the resuscitation efforts. ROSC ultimately was not achieved despite successful evacuation of tension pneumothorax with chest tube and high quality CPR. The situation was discussed with eICU provider. Patient had prolonged hypoxia and rhythm changes even prior to decompression efforts. Prognosis was considered very poor at this point. eICU recommended terminating CPR at 10:36. I agreed with this assessment and resuscitation efforts were stopped. Time of pronounced at 10:36. Dr. Serrano and I notified family immediately afterward. Progress/Results/Core Measures Results/Orders Lab Results Laboratory Tests Test 10/13/20 14:27 10/13/20 21:00 10/13/20 21:47 10/14/20 04:00 Range/Units White Blood Count 13.4 H 14.0 H 4.3-11.0 10^3/uL Red Blood Count 4.06 3.80 3.80-5.11 10^6/uL Hemoglobin 12.2 11.5 11.5-16.0 g/dL Hematocrit 36 34 L 35-52 % Mean Corpuscular Volume 89 90 80-99 fL Mean Corpuscular Hemoglobin 30 30 25-34 pg Mean Corpuscular Hemoglobin Concent 34 34 32-36 g/dL Red Cell Distribution Width 12.5 12.5 10.0-14.5 % Platelet Count 142 123 L 130-400 10^3/uL Mean Platelet Volume 9.1 9.1 9.0-12.2 fL Immature Granulocyte % (Auto) 1 1 % Neutrophils (%) (Auto) 92 H 94 H 42-75 % Lymphocytes (%) (Auto) 4 L 3 L 12-44 % Monocytes (%) (Auto) 2 2 0-12 % Eosinophils (%) (Auto) 1 1 0-10 % Basophils (%) (Auto) 0 0 0-10 % Neutrophils # (Auto) 12.4 H 13.1 H 1.8-7.8 10^3/uL Lymphocytes # (Auto) 0.5 L 0.4 L 1.0-4.0 10^3/uL Monocytes # (Auto) 0.3 0.3 0.0-1.0 10^3/uL Eosinophils # (Auto) 0.1 0.1 0.0-0.3 10^3/uL Basophils # (Auto) 0.0 0.0 0.0-0.1 10^3/uL Immature Granulocyte # (Auto) 0.2 H 0.2 H 0.0-0.1 10^3/uL Neutrophils % (Manual) 91 % Lymphocytes % (Manual) 4 % Monocytes % (Manual) 3 % Band Neutrophils 2 % D-Dimer > 20.00 *H 0.00-0.49 UG/ML Sodium Level 134 L 133 L 135-145 MMOL/L Potassium Level 4.4 4.3 3.6-5.0 MMOL/L Chloride Level 96 L 98 98-107 MMOL/L Carbon Dioxide Level 27 26 21-32 MMOL/L Anion Gap 11 9 5-14 MMOL/L Blood Urea Nitrogen 23 H 15 7-18 MG/DL Creatinine 0.77 0.70 0.60-1.30 MG/DL Estimat Glomerular Filtration Rate > 60 > 60 BUN/Creatinine Ratio 30 21 Glucose Level 108 H 86 70-105 MG/DL Lactic Acid Level 1.70 0.50-2.00 MMOL/L Calcium Level 8.0 L 7.9 L 8.5-10.1 MG/DL Corrected Calcium 9.0 9.2 8.5-10.1 MG/DL Total Bilirubin 0.9 1.1 H 0.1-1.0 MG/DL Aspartate Amino Transf (AST/SGOT) 34 42 H 5-34 U/L Alanine Aminotransferase (ALT/SGPT) 26 25 0-55 U/L Alkaline Phosphatase 88 94 40-136 U/L Troponin I 0.122 H <0.028 NG/ML B-Type Natriuretic Peptide 362.0 H <100.0 PG/ML Total Protein 5.6 L 5.3 L 6.4-8.2 GM/DL Albumin 2.7 L 2.4 L 3.2-4.5 GM/DL Blood Gas Puncture Site RIGHT RADIAL RIGHT RADIAL Blood Gas Patient Temperature 37.1 37.0 Arterial Blood pH 7.47 H 7.44 H 7.37-7.43 Arterial Blood Partial Pressure CO2 40 43 35-45 MMHG Arterial Blood Partial Pressure O2 73 L 71 L 79-93 MMHG Arterial Blood HCO3 29 H 28 H 23-27 MMOL/L Arterial Blood Total CO2 29.7 29.7 21.0-31.0 MMOL/L Arterial Blood Oxygen Saturation 94 92 L 94-100 % Arterial Blood Base Excess 4.8 H 4.3 H -2.5-2.5 MMOL/L Axel Test YES-POS YES-POS Blood Gas Ventilator Setting NO NO Blood Gas Inspired Oxygen 100% 100% Glucometer 105 70-110 MG/DL Phosphorus Level 3.2 2.3-4.7 MG/DL Magnesium Level 1.8 1.6-2.4 MG/DL Triglycerides Level 73 <150 MG/DL Procalcitonin 0.68 H <0.10 NG/ML Vital Signs/I&O 10/13/20 10/13/20 10/13/20 10/13/20 12:30 13:00 13:54 14:00 Pulse 160 142 131 137 Resp 33 B/P (MAP) 81/32 (48) 94/67 (76) 91/35 (53) Pulse Ox 87 92 93 O2 Delivery NIV Bilevel NIV Bilevel NIV Bilevel O2 Flow Rate 100.00 100.00 100.00 10/13/20 10/13/20 10/13/20 10/13/20 14:42 15:00 16:00 16:12 Pulse 128 115 125 Resp 33 31 23 B/P (MAP) 112/74 (87) 106/69 (81) Pulse Ox 94 95 93 O2 Delivery NIV Bilevel NIV Bilevel NIV Bilevel O2 Flow Rate 100.00 100.00 100.00 FiO2 100 10/13/20 10/13/20 10/13/20 10/13/20 16:35 17:00 18:00 18:35 Temp 35.6 Pulse 126 120 124 Resp 39 36 35 B/P (MAP) 115/71 (86) 108/71 (83) Pulse Ox 91 95 92 O2 Delivery NIV Bilevel NIV Bilevel O2 Flow Rate 100.00 100.00 100.00 10/13/20 10/13/20 10/13/20 10/13/20 19:00 19:00 19:48 20:00 Pulse 117 123 124 126 Resp 31 34 31 B/P (MAP) 113/62 (79) 105/72 (83) 107/82 (90) Pulse Ox 96 94 90 O2 Delivery NIV Bilevel NIV Bilevel NIV Bilevel O2 Flow Rate 90.00 90.00 90.00 10/13/20 10/13/20 10/13/20 10/13/20 20:52 21:00 21:00 21:22 Temp 37.1 Pulse 122 112 Resp 29 31 B/P (MAP) 111/99 (103) Pulse Ox 90 93 93 O2 Delivery NIV Bilevel NIV Bilevel NIV Bilevel O2 Flow Rate 100.00 100.00 100.00 FiO2 100 10/13/20 10/13/20 10/13/20 10/14/20 22:00 22:18 23:00 00:00 Temp 37.1 Pulse 113 112 107 101 Resp 26 31 19 B/P (MAP) 93/56 (68) 118/75 (89) 122/83 (96) Pulse Ox 97 93 92 91 O2 Delivery NIV Bilevel NIV Bilevel NIV Bilevel O2 Flow Rate 100.00 100.00 100.00 FiO2 100 10/14/20 10/14/20 10/14/20 10/14/20 01:00 01:00 01:05 02:00 Pulse 122 126 121 111 Resp 30 35 31 B/P (MAP) 112/75 (87) 117/54 (75) Pulse Ox 91 92 94 O2 Delivery NIV Bilevel NIV Bilevel O2 Flow Rate 100.00 100.00 100.00 10/14/20 10/14/20 10/14/20 10/14/20 03:00 04:00 05:00 06:00 Pulse 99 95 101 116 Resp 26 27 17 28 B/P (MAP) 114/67 (83) 119/66 (83) 98/66 (77) 127/87 (100) Pulse Ox 91 93 90 91 O2 Delivery NIV Bilevel NIV Bilevel NIV Bilevel NIV Bilevel O2 Flow Rate 100.00 100.00 100.00 100.00 10/14/20 10/14/20 10/14/20 10/14/20 07:00 07:00 07:15 08:00 Pulse 111 121 109 114 115 Resp 28 39 23 B/P (MAP) 111/82 (92) 94/81 (85) Pulse Ox 90 93 91 O2 Delivery NIV Bilevel NIV Bilevel O2 Flow Rate 100.00 100.00 100.00 10/14/20 09:00 Pulse 112 Resp 28 B/P (MAP) 118/74 (89) Pulse Ox 86 O2 Delivery NIV Bilevel O2 Flow Rate 100.00 Blood Pressure Mean: 89 FSBG Bedside Testing Finger Stick Blood Glucose: 86 Diagnostic Imaging Diagonstic Imaging: Xray Plain Films/CT/US/NM/MRI: chest Comments Chest x-ray viewed by me. Large left pneumothorax identified. Clinical Quality Measures DVT/VTE Risk/Contraindication: Risk Factor Score Per Nursin RFS Level Per Nursing on Admit: 3=High EVANGELIST STOLL MD Oct 14, 2020 19:00
[2020-10-15] MEDS ORDERED: PANTOPRAZOLE 40 MG (PROTONIX) VIAL IV SCH (09:00)
--- NOTE | 2020-10-16 09:27 | Physician Query Clarification ---
PQ-Uncertain Diagnosis Admission/Discharge Admission Date: Oct 13, 2020 at 12:21 Discharge Date: Oct 14, 2020 at 12:15 Dr. Martel, The medical record reflects the following clinical scenario: History/Risk Factors: Covid pneumonia, bacterial pneumonia, acute respiratory failure w/hypoxia Clinical Findings: T 35.6, R 33, P 160, BP 81/32, WBC 13.4, Lactic 1.70 Treatment: IV Decadron, IV Decadron, IV Digoxin Question: Is Sepsis a clinically valid diagnosis? Sepsis was documented in Dr. Grajeda's cardiology consult with no further documentation in the medical record. Please document a response in Progress Note or Discharge Summary. 1. Yes, clinically valid, condition resolved. 2. No, condition ruled out. 3. Other, with explanation of clinical findings. 4. Undetermined, no explanation for clinical findings. PHYSICIAN RESPONSE Diagnosis clinically valid: No, conditon ruled out Please remember a lack of response to the above will prompt a phone page by C DI/Coding staff. In responding to this query, please exercise your independent professional judgment. The purpose of this communication is to more accurately reflect the complexity of your patients condition. The fact that a question is asked does not imply that any particular answer is desired or expected. Thank you for your timely response to this clarification. Requestors name: [email or web address] THIS PHYSICIAN QUERY FORM IS A PERMANENT PART OF THE MEDICAL RECORD LAMONT OROZCO Oct 16, 2020 09:27 NAY MARTEL DO Oct 16, 2020 19:56
--- NOTE | 2020-10-16 19:02 | Progress Note - Surgery ---
Subjective Date Seen by a Provider: Oct 14, 2020 Time Seen by a Provider: 10:25 Subjective/Events-last exam Called to evaluate patient due to tension pneumothorax. Patient's coding. Patient with Thora vent placed by Dr. Garcia left chest. Patient on chest x- ray large tension pneumothorax on left. Patient respiratory status had declined requiring intubation on follow-up x-ray found to have pneumothorax and then patient continued to decline. Objective Exam Capillary Refill : General Appearance: Chronically ill, Obese HEENT: Other (et tube) Respiratory: Other (intubated) Cardiovascular: Other (No palpable pulse, thoravent left chest) Gastrointestinal: soft Neurologic/Psychiatric: No Alert Assessment/Plan Assessment/Plan Assessment/Plan Patient is a 70-year-old female Covid positive pneumonia Atrial fibrillation Long-term anticoagulation Respiratory failure requiring intubation Left tension pneumothorax CODE BLUE Patient having ACLS being performed. Patient has a left Thora vent in the left chest which is evacuating some air. Placed left chest tube to evacuate more air. Despite efforts return of spontaneous circulation was not obtained. Dr. Yanez and myself notified patient's family. Procedure: Left chest thoracostomy tube placement Patient left chest was prepped in a sterile fashion 11 blade scalpel was used to make a small skin incision at the sixth rib interspace anterior axillary line. Peon was used to dissect down through subtenons tissue to the rib cage and then the chest was entered above the rib. A isbell of air evacuated. Finger was placed in through the incision and into the chest. No lung present at insertion point and chest tube was inserted. The chest tube was secured using 2-0 silk suture. The chest tube was attached to the atrium. Large air leak present. Clinical Quality Measures DVT/VTE Risk/Contraindication: Risk Factor Score Per Nursin RFS Level Per Nursing on Admit: 3=High CANDIDO GRAHAM DO Oct 16, 2020 19:02
== END 2020-10-14 12:15 | disposition expired | DRG 177 ==
LOC: ICU 12:21
PROVIDERS: ADMIT Internal Medicine; ATTEND Internal Medicine
PROC: 5A09357 Assistance with Respiratory Ventilation, Less than 24 Consecutive Hours, Continuous Positive Airway Pressure (ICD-10-PCS; 2020-10-13)
PROC: 0W9B30Z Drainage of Left Pleural Cavity with Drainage Device, Percutaneous Approach (ICD-10-PCS; principal; 2020-10-14)
PROC: 5A12012 Performance of Cardiac Output, Single, Manual (ICD-10-PCS; 2020-10-14)
DX: U07.1 COVID-19 (principal); J12.82 Pneumonia due to coronavirus disease 2019; J15.9 Unspecified bacterial pneumonia; J96.01 Acute respiratory failure with hypoxia; J93.0 Spontaneous tension pneumothorax; I82.402 Acute embolism and thrombosis of unspecified deep veins of left lower extremity; I48.20 Chronic atrial fibrillation, unspecified; I95.9 Hypotension, unspecified; I46.9 Cardiac arrest, cause unspecified; G47.33 Obstructive sleep apnea (adult) (pediatric); E11.9 Type 2 diabetes mellitus without complications; E78.00 Pure hypercholesterolemia, unspecified; E03.9 Hypothyroidism, unspecified; I10 Essential (primary) hypertension; M10.9 Gout, unspecified; Z87.891 Personal history of nicotine dependence; Z88.8 Allergy status to other drugs, medicaments and biological substances; Z73.0 Burn-out
CPT/HCPCS: 36415; 71045; 80053; 82805; 82962; 83605; 83735; 83880; 84100; 84145; 84478; 84484; 85007; 85025; 85027; 85379; 93306; 94640; 94660